=== PATIENT | male | born 1990 | race Caucasian/White ===

== ENCOUNTER 2019-02-20 13:51 | Inpatient (IN) | payer MEDICARE, MEDICAID, SELFPAY ==
[2019-02-20 14:30] VITALS: BP 122/76; PULSE 91; RESP 16; TEMP 36.7; BMI 22.4
--- NOTE | 2019-02-20 14:32 | HP.PCM_ITS ---
Problem List (1) Opiate withdrawal Status: Acute (2) Alcohol use disorder Status: Acute (3) Nicotine dependence Status: Acute Qualifiers: Nicotine product type: cigarettes Substance use status: unspecified nicotine-induced disorder Qualified Code(s): F17.219 - Nicotine dependence, cigarettes, with unspecified nicotine-induced disorders (4) Moderate benzodiazepine use disorder Status: Acute History of Present Illness Date of Admission: 02/20/19 Chief Complaint: Acute opiate withdrawal The patient is a 28 year old M with past medical history of bilateral kidney transplants, bladder surgeries, history of IV heroin use, alcohol, benzodiaze pine and nicotine use disorder, who comes in for medical stabilization under the [facility] program. Patient admits to use of the above polysubstances but feels that the IV heroin is his biggest problem. He takes the Xanax to sleep. He uses about 4mg a night. He also drinks about 2-3 beers every day, last drink was 2 days ago. He smokes marijuana. He typically uses 2-3 g of IV heroin, last use of heroin was 5 hours ago and also admits to use of methamphetamines every day. He smokes about 1 pack of cigarettes every day. His admitting CIWA score was 23, Cina score was 17. Vitals on exam show temperature of 90 8.1F, heart rate 91, blood pressure 120/76, respiratory rate was 16, oxygen saturation was 99% on room air. Past Medical History Allergies No Known Allergies Allergy (Verified 02/20/19 14:28) Home Medications: Ambulatory Orders Medication Instructions Recorded NK 02/20/19 Surgical History: - Psychiatric History: Anxiety - Status post bilateral kidney transplant, Depression Lives: With Family Smoking Status: Current some day smoker Tobacco Use: Cigarettes Alcohol: Heavy Drugs: Heroin, Marijuana, - - methamphetamines - *Family History Maternal History Items: Cancer - breast Paternal History Items: No pertinent history Review of Systems Constitutional: Reports: Malaise, Weakness, Fatigue. Denies: Anorexia, Chills, Fever, Weight Change Eyes: Denies: Blurred vision, Cataracts, Conjunctivae Inflammation, Pain, Redness, Vision Change HEENT: Reports: Nasal Congestion. Denies: Difficulty Hearing, Difficulty Swallowing, Head Aches, Hearing Changes, Sinus Congestion, Sinus Drainage, Sore Throat, Visual Changes Cardiovascular: Denies: Chest Pain, Claudication, Orthopnea, Palpitations, Paroxysmal Noc. Dyspnea, Syncope Respiratory: Denies: Cough, Hemoptysis, Shortness of Breath, Shortness of breath at rest, Shortness of breath upon exertion, Sputum production, Wheezing Gastrointestinal: Denies: Abdominal Pain, Constipation, Nausea, Vomiting Genitourinary: Denies: Dysuria Musculoskeletal: Reports: Muscle pain. Denies: Joint Pain, Joint stiffness, Joint swelling, Joint Tenderness Skin: Denies: Rash, Wounds Neurological: Denies: Blurred vision, Difficulty swallowing, Focal weakness, Numbness, Tingling Psychiatric: Denies: Anxiety, Depression, Homicidal Ideations, Suicidal Ideations Hematologic/ Lymphatic: Denies: Easy Bruising, Easy Bleeding VTE Information - Inpt Only VTE Present on Admission: No VTE Pharm Prophylaxis ordered?: Yes Patient Problems: Active and Suspected Problems Opiate withdrawal (Acute) Alcohol use disorder (Acute) Nicotine dependence (Acute) Moderate benzodiazepine use disorder (Acute) - Physical Exam General: Alert, Oriented x3, Cooperative, No apparent distress HEENT: Atraumatic, PERRLA, EOMI, Normocephalic Oral: Moist Mucosa Neck: Supple, No JVD, Negative Carotid Bruits Lungs: Clear to auscultation, Normal air movement Cardiovascular: Regular rate, Regular Rhythm, Normal S1, Normal S2, No murmurs Abdomen: Bowel Sounds Present, Soft, Non Tender, Non-Distended, No Hepato- splenomegaly Extremities: No edema Skin: - - Scattered erythematous maculopapular lesions secondary to skin picking Musculoskeletal: No Tenderness to Palpation of Joints or Extremities Lymphatic: No Cervical, Supraclavicular, or Inguinal Adenopathy Neurological: Cranial nerves II-XII grossly intact, Neuro grossly intact Psych/Mental Status: Normal Affect, Appropriate Assessment/Plan All Active Problems Opiate withdrawal (Acute) Alcohol use disorder (Acute) Nicotine dependence (Acute) Moderate benzodiazepine use disorder (Acute) 28 year old M with past medical history of bilateral kidney transplants, bladder surgeries, history of IV heroin use, alcohol, benzodiazepine and nicotine use disorder, who comes in for medical stabilization under the [facility] program. 1. Acute opiate withdrawal, admitting Cina score of 17, use of IV heroin Plan: Admit to the [facility] floor, continue a [facility] protocol, continue to monitor vitals 2. Acute alcohol withdrawal, will put on alcohol withdrawal protocol 3. Acute benzodiazepine withdrawal, CIWA score is 23, will be on Ativan taper for alcohol withdrawal 4. H/o bilateral kidney transplant, last nephrology visit was 6 months ago, creatinine was reportedly normal Will check admitting labs 5. Nicotine dependence, advised to quit, will put on nicotine patch and gum 6. Polysubstance use, advised to quit 7. DVT PPx- Early ambulation Code Visit Inpatient E&M: 94629 Init Hosp L3
[2019-02-20 14:33] VITALS: BP 122/76; PULSE 91; RESP 16; TEMP 36.7; O2SAT 99
[2019-02-20 14:54] LABS: Absolute Lymphocyte Count 1.52 X10^3/ul (0.83-4.51); Absolute Neutrophil Count 3.8 X10^3/uL (2.0-7.7); Basophil# 0.02 X10^3/uL; Basophil% 0.3 % (0-1); Eosinophil# 0.01 X10^3/uL; Eosinophils% 0.2 % (0-5); Hematocrit 39.6 % (40-54); Hemoglobin 13.2 g/dl (13.0-16.5); Lymphocyte # 1.52 X10^3/ul (4.0); Lymphocyte % 25.3 % (19-41); Mean Corp Hgb Conc 33.3 g/gl (32-36); Mean Corpuscular Hgb 30.1 pg (27.0-32.0); Mean Corpuscular Volume 90.4 fL (80-94); Mean Platelet Vol. 9.8 fl (6.2-12.0); Monocyte# 0.66 X10^3/uL; Neutrophil # 3.77 X10^3/uL (2.7-7.7); Neutrophil % 62.9 % (47-70); Platelet Count 233 K/mm3 (150-450); RBC Distribution Width CV 12.9 % (11.6-14.6); RBC Distribution Width SD 42.1 fl (35.1-43.9); Red Blood Count 4.38 M/mm3 (4.6-6.2)
--- NOTE | 2019-02-20 15:08 | NEWVISION ---
Addendum entered by Cony Dickson 02/20/19 16:06: Patient transportation to [employer] patient between 12-1pm. Original Note: Patient will attend inpatient treatment at [facility]. Facility to transport patient to rehab upon discharge.
[2019-02-20 15:22] LABS: AST(SGOT) 22 U/L (15-37); Alanine Aminotransfer ALT/SGPT 21 U/L (16-61); Albumin, Serum 3.5 g/dL (3.2-5.0); Alkaline Phosphatase 73 U/L (45-117); Anion Gap 4 (5-15); BUN 25 mg/dL (7-18); BUN/Creat Ratio 19.2 RATIO (10-20); Calcium,Total 8.5 mg/dL (8.5-10.1); Chloride 107 mmol/L (98-107); EST Glomerular Filtration Rate 69 mL/min (>60); Est Glom Filt Rate - Afr Amer 84 mL/min (>60); Estimated Creatinine Clearance 81.95 ml/min; Globulin 3.4 g/dL (2.2-4.2); Glucose 94 mg/dL (74-106); Protein, Total 6.9 g/dL (6.4-8.2); Sodium Level 139 mmol/L (136-145)
[2019-02-20] MEDS: Methocarbamol 750 MG Tablet PO (15:23)
[2019-02-20] MEDS: hydrOXYzine PAM 25 MG Capsule 50 MG PO (15:23)
[2019-02-20] MEDS: Buprenorphine HCl 2 MG TAB.SUBL SL ×2 (15:23→23:03)
[2019-02-20] MEDS: Dicyclomine 10 MG Capsule 20 MG PO (15:23)
[2019-02-20] MEDS: Pramipexole Di-HCl 0.25 MG Tablet PO (15:28)
[2019-02-20 15:51] LABS: POSITIVE COUNT NO; POSITIVE DIFFERENTIAL NO; POSITIVE MORPHOLOGY NO
[2019-02-20] MEDS: LORazepam 1 MG Tablet PO ×3 (16:07→23:03)
[2019-02-20] MEDS: Multivitamins,Therapeutic Tablet 1 TABLET PO (16:37)
[2019-02-20] MEDS: Thiamine Hydrochloride 100 MG Tablet PO (16:37)
[2019-02-20] MEDS: Folic Acid 1 MG Tablet PO (16:37)
[2019-02-20 16:39] VITALS: BP 125/77; PULSE 85; RESP 16; TEMP 36.6
[2019-02-20 20:23] VITALS: BP 120/78; PULSE 82; RESP 16; TEMP 36.6; O2SAT 99
[2019-02-20 21:13] LABS: Amphetamine Urine VISTA POSITIVE (<1000 ng/mL); Barbiturate Urine VISTA NEGATIVE (< 200 ng/mL); Benzodiazepine Urine VISTA NEGATIVE (< 200 ng/mL); Cocaine Urine VISTA NEGATIVE (< 300 ng/mL); Ecstacy Urine VISTA NEGATIVE (< 500 ng/mL); Methadone Urine VISTA NEGATIVE (< 300 ng/mL); PCP Urine VISTA NEGATIVE (< 25 ng/mL); THC Urine VISTA POSITIVE (< 50 ng/mL); Vista UDS pH Range 6
[2019-02-20] MEDS: traZODone 50 MG Tablet PO (23:03)
[2019-02-20 23:20] VITALS: BP 121/83; PULSE 77; RESP 16; TEMP 36.3; O2SAT 99
[2019-02-20 23:26] VITALS: BP 121/83; PULSE 77; RESP 16; TEMP 36.3
--- NOTE | 2019-02-20 23:31 | NURSING ---
Pt. refusing seizure pads at this time. Removed seizure pads from bed per pt. request.
[2019-02-21] VITALS (7 sets, daily range): BP systolic 121–136; BP diastolic 71–78; PULSE 73–92; RESP 16–18; TEMP 35.9–36.6; O2SAT 96–98
[2019-02-21] MEDS: LORazepam 1 MG Tablet PO ×5 (03:53→23:30)
[2019-02-21] MEDS: Buprenorphine HCl 2 MG TAB.SUBL SL ×3 (06:04→23:30)
[2019-02-21] MEDS: Dicyclomine 10 MG Capsule 20 MG PO ×2 (08:12→15:07)
[2019-02-21] MEDS: Methocarbamol 750 MG Tablet PO ×3 (08:12→23:30)
[2019-02-21] MEDS: Folic Acid 1 MG Tablet PO (08:12)
[2019-02-21] MEDS: Multivitamins,Therapeutic Tablet 1 TABLET PO (08:12)
[2019-02-21] MEDS: Thiamine Hydrochloride 100 MG Tablet PO (08:12)
[2019-02-21] MEDS: Ibuprofen 600 MG Tablet PO (08:12)
[2019-02-21] MEDS: hydrOXYzine PAM 25 MG Capsule 50 MG PO (11:14)
[2019-02-21] MEDS: Acetaminophen 500 MG Tablet PO (11:14)
[2019-02-21] MEDS: Pramipexole Di-HCl 0.25 MG Tablet PO ×2 (11:14→23:30)
--- NOTE | 2019-02-21 14:02 | PCM.PROGNOTE ---
Patient Problems: Active and Suspected Problems Opiate withdrawal (Acute) Alcohol use disorder (Acute) Nicotine dependence (Acute) Moderate benzodiazepine use disorder (Acute) Subjective: Pt has some ongoing runny nose, watery eyes, restless legs, muscle aches. No GI issues, states he gets very hungry during withdrawal. He is pleased with the current medication regimen stating that his symptoms are very tolerable currently and that he does not expect them to completely go away. - Physical Exam General: Alert, Oriented x3, Cooperative HEENT: Atraumatic, PERRLA, EOMI, Normocephalic Neck: Supple, No JVD, Negative Carotid Bruits Lungs: Clear to auscultation, Normal air movement Cardiovascular: Regular rate, No murmurs Abdomen: Bowel Sounds Present, Soft, Non Tender Extremities: No edema, Capillary Refill Less than 3 Seconds Skin: No rashes, No breakdown Musculoskeletal: No Tenderness to Palpation of Joints or Extremities Neurological: Cranial nerves II-XII grossly intact Psych/Mental Status: Normal Affect, Appropriate, Alert and oriented to time, place, person, mood and affect Vital Signs Temp Pulse Resp BP Pulse Ox 96.6 F L 92 18 123/74 H 98 02/21/19 11:08 02/21/19 11:08 02/21/19 11:08 02/21/19 11:08 02/21/19 06:24 Oxygen Delivery Method Room Air Weight: 152 lb 5.431 oz Body Mass Index (BMI) 22.4 Intake and Output for Last 24 Hours 02/19/19 02/20/19 02/21/19 23:59 23:59 23:59 Intake Total 360 / 360 900 / 900 Balance 360 / 360 900 / 900 Laboratory Tests Past 24 Hrs 02/20/19 02/20/19 02/20/19 14:45 14:45 20:22 WBC 6.0 RBC 4.38 L Hgb 13.2 Hct 39.6 L MCV 90.4 MCH 30.1 MCHC 33.3 RDW 12.9 RDW Differential 42.1 Plt Count 233 MPV 9.8 Immature Gran % (Auto) 0.300 Neut % (Auto) 62.9 Lymph % (Auto) 25.3 [place] % (Auto) 11.0 H Eos % (Auto) 0.2 Baso % (Auto) 0.3 Absolute Neuts (auto) 3.8 Absolute Lymphs (auto) 1.52 Total Counted Not Reportable Sodium 139 Potassium 4.0 Chloride 107 Carbon Dioxide 28.0 Anion Gap 4 L BUN 25 H Creatinine 1.30 Estim Creat Clear Calc 81.95 Est GFR (MDRD) Af Amer 84 Est GFR (MDRD) Non-Af 69 BUN/Creatinine Ratio 19.2 Glucose 94 Calcium 8.5 Total Bilirubin 0.20 AST 22 ALT 21 Alkaline Phosphatase 73 Total Protein 6.9 Albumin 3.5 Globulin 3.4 Albumin/Globulin Ratio 1.0 Urine Opiates Screen POSITIVE H Urine Methadone Screen NEGATIVE Ur Barbiturates Screen NEGATIVE Ur Phencyclidine Scrn NEGATIVE Ur Amphetamines Screen POSITIVE H U Methamphetamin-MDMA NEGATIVE U Benzodiazepines Scrn NEGATIVE Urine Cocaine Screen NEGATIVE U Cannabinoids Screen POSITIVE H Ur Drug Screen Comment Medical Necessity - Tobacco Use Smoking Status: Current some day smoker Tobacco Use: Cigarettes Assessment/Plan All Active Problems Opiate withdrawal (Acute) Alcohol use disorder (Acute) Nicotine dependence (Acute) Moderate benzodiazepine use disorder (Acute) 1. Acute opiate withdrawal - continue suboxone taper and prn regimen. 2. Polysubstance abuse - nicotine, marijuana, benzos, meth - also ativan taper for benzos. Patch. 3. Hx BL kidney transplant - BUN mildly high, Cr ok. DVT ppx: early ambulation Medical stabilization day 2 of 4 This patient was seen by Erasmo Villaseñor PA-C under the supervision of Dr. Kim.
[2019-02-21] MEDS: traZODone 50 MG Tablet PO (23:30)
[2019-02-22 06:38] VITALS: BP 126/67; PULSE 81; RESP 16; TEMP 36.4
[2019-02-22] MEDS: Buprenorphine HCl 2 MG TAB.SUBL SL ×2 (06:44→18:36)
[2019-02-22] MEDS: Methocarbamol 750 MG Tablet PO ×3 (06:44→18:35)
[2019-02-22] MEDS: LORazepam 1 MG Tablet PO ×3 (06:44→20:18)
[2019-02-22] MEDS: Pramipexole Di-HCl 0.25 MG Tablet PO (12:02)
[2019-02-22] MEDS: Dicyclomine 10 MG Capsule 20 MG PO ×2 (12:02→18:35)
[2019-02-22] MEDS: Multivitamins,Therapeutic Tablet 1 TABLET PO (12:09)
--- NOTE | 2019-02-22 12:12 | PCM.PROGNOTE ---
Patient Problems: Active and Suspected Problems Opiate withdrawal (Acute) Alcohol use disorder (Acute) Nicotine dependence (Acute) Moderate benzodiazepine use disorder (Acute) Subjective: Pt complains of headache behind the eyes, increased restlessness, and hot and cold sweats. - Physical Exam General: Alert, Oriented x3, Cooperative HEENT: Atraumatic, PERRLA, EOMI, Normocephalic Neck: Supple, No JVD, Negative Carotid Bruits Lungs: Clear to auscultation, Normal air movement Cardiovascular: Regular rate, No murmurs Abdomen: Bowel Sounds Present, Soft, Non Tender Extremities: No edema, Capillary Refill Less than 3 Seconds Skin: No rashes, No breakdown Musculoskeletal: No Tenderness to Palpation of Joints or Extremities Neurological: Cranial nerves II-XII grossly intact Psych/Mental Status: Appropriate, Anxious, Alert and oriented to time, place, person, mood and affect Vital Signs Temp Pulse Resp BP Pulse Ox 97.6 F L 81 16 126/67 H 98 02/22/19 06:38 02/22/19 06:38 02/22/19 06:38 02/22/19 06:38 02/21/19 15:08 Oxygen Delivery Method Room Air Weight: 152 lb 5.431 oz Body Mass Index (BMI) 22.4 Intake and Output for Last 24 Hours 02/20/19 02/21/19 02/22/19 23:59 23:59 23:59 Intake Total 360 / 360 1440 / 1440 50 / 50 Balance 360 / 360 1440 / 1440 50 / 50 Medical Necessity - Tobacco Use Smoking Status: Current some day smoker Tobacco Use: Cigarettes Assessment/Plan All Active Problems Opiate withdrawal (Acute) Alcohol use disorder (Acute) Nicotine dependence (Acute) Moderate benzodiazepine use disorder (Acute) 1. Acute opiate withdrawal - continue suboxone taper and prn regimen. add prn clonidine for hot/cold sweats 2. Polysubstance abuse - nicotine, marijuana, benzos, meth - also ativan taper for benzos. Patch for nicotine w/d. 3. Hx BL kidney transplant - BUN mildly high, Cr ok. DVT ppx: early ambulation Medical stabilization day 3 of 4 DC planning : to inpatient rehab in [place] tomorrow. This patient was seen by Erasmo Villaseñor PA-C under the supervision of Dr. Kim.
[2019-02-22 12:14] VITALS: BP 134/92; PULSE 94; RESP 20; TEMP 36.8
[2019-02-22] MEDS: Folic Acid 1 MG Tablet PO (12:43)
[2019-02-22] MEDS: Thiamine Hydrochloride 100 MG Tablet PO (12:43)
[2019-02-22] MEDS: cloNIDine HCl 0.1 MG Tablet PO ×3 (13:07→20:21)
[2019-02-22] MEDS: hydrOXYzine PAM 25 MG Capsule 50 MG PO (16:56)
[2019-02-22 16:58] VITALS: BP 142/87; PULSE 92; RESP 18; TEMP 36.7
[2019-02-22 17:00] VITALS: BP 142/87; PULSE 94; RESP 20; TEMP 36.8; O2SAT 96
[2019-02-22 20:00] VITALS: BP 122/76; PULSE 77; RESP 14; TEMP 36.5
[2019-02-22 20:11] VITALS: O2SAT 98
[2019-02-22] MEDS: traZODone 50 MG Tablet PO (20:40)
[2019-02-23 04:00] VITALS: BP 101/63; PULSE 79; RESP 12; TEMP 37.5
[2019-02-23] MEDS: LORazepam 1 MG Tablet PO ×2 (04:16→11:51)
[2019-02-23] MEDS: Buprenorphine HCl 2 MG TAB.SUBL SL (06:47)
[2019-02-23] MEDS: Multivitamins,Therapeutic Tablet 1 TABLET PO (08:30)
[2019-02-23] MEDS: Methocarbamol 750 MG Tablet PO (08:41)
[2019-02-23] MEDS: hydrOXYzine PAM 25 MG Capsule 50 MG PO (08:41)
[2019-02-23] MEDS: cloNIDine HCl 0.1 MG Tablet PO (08:41)
[2019-02-23 09:00] VITALS: BP 127/73; PULSE 81; RESP 16; TEMP 37.2; O2SAT 98
--- NOTE | 2019-02-23 09:01 | DCINST_ITS ---
- Discharge Diagnoses Current Active Problems: Current Active and Chronic Problems Opiate withdrawal (Acute) Alcohol use disorder (Acute) Nicotine dependence (Acute) Moderate benzodiazepine use disorder (Acute) You will use the following diet at home:: No restrictions Allergies/Adverse Reactions: Allergies No Known Allergies Allergy (Verified 02/20/19 14:28) Medications to take at Discharge NK 02/20/19 Primary Care Physician: Care Physician,No Primary [Primary Care Provider] - Test Results: Test results from this visit will be discussed in further detail at your follow- up appointment, if applicable. Proposed Discharge Date: 02/23/19
--- NOTE | 2019-02-23 09:01 | PCM.DC.SUM ---
Discharge Date and Diagnosis - Problem List Patient Problems: Active and Suspected Problems Opiate withdrawal (Acute) Alcohol use disorder (Acute) Nicotine dependence (Acute) Moderate benzodiazepine use disorder (Acute) Date of Admission: 02/20/19 Date of Discharge: 02/23/19 - Primary Discharge Diagnosis Active and Suspected Problems Opiate withdrawal (Acute) Alcohol use disorder (Acute) Nicotine dependence (Acute) Moderate benzodiazepine use disorder (Acute) Hospital Course and Treatment Summary of Care Provided: The patient is a 28 year old M medical history sent in for opioid use who presented with acute opiate withdrawal. Patient was admitted to regular nursing floor for medical stabilization using Subutex. Patient condition did improve after 3 days of hospitalization. Patient also has use of tobacco was counseled on cessation Patient Problems: Active and Suspected Problems Opiate withdrawal (Acute) Alcohol use disorder (Acute) Nicotine dependence (Acute) Moderate benzodiazepine use disorder (Acute) - Physical Exam General: Alert HEENT: Atraumatic Oral: Moist Mucosa Neck: No JVD Lungs: Clear to auscultation Abdomen: Non Tender Neurological: Neuro grossly intact Psych/Mental Status: Normal Affect Vital Signs Temp Pulse Resp BP Pulse Ox 99.5 F H 79 12 101/63 98 02/23/19 04:00 02/23/19 04:00 02/23/19 04:00 02/23/19 04:00 02/22/19 20:11 Oxygen Delivery Method Room Air Weight: 69.1 kg Body Mass Index (BMI) 22.4 Intake and Output for Last 24 Hours 02/21/19 02/22/19 02/23/19 23:59 23:59 23:59 Intake Total 1440 / 1440 550 / 550 120 / 120 Output Total 0 / 0 Balance 1440 / 1440 550 / 550 120 / 120 Discharge Diet: No Restrictions Discharge Activity: Return to Normal Activity, May not drive while taking narcotic pain medications. Home Medications: Medications to take at Discharge NK 02/20/19 Primary Care Physician: Care Physician,No Primary [Primary Care Provider] - Disposition: Home Minutes spent on discharge:: 31 Patient Condition:: Stable Medical Necessity - Tobacco Use Smoking Status: Current some day smoker Tobacco Use: Cigarettes Meaningful Use Info Meaningful Use Diagnoses (Choose all that apply): None applicable Code Visit Inpatient E&M: 80324 Disch Hosp
[2019-02-23 12:03] VITALS: BP 127/73; PULSE 81; RESP 16; TEMP 37.2; O2SAT 98
== END 2019-02-23 12:16 | disposition home or self-care (01) | DRG 897 ==
LOC: MS2 02-21 13:27 → MS3 02-21 17:00
PROVIDERS: Admitting Provider Internal Medicine; Referring Provider Internal Medicine; Visit Provider Internal Medicine
DX: F11.23 Opioid dependence with withdrawal (principal); Z94.0 Kidney transplant status; F17.210 Nicotine dependence, cigarettes, uncomplicated; F10.20 Alcohol dependence, uncomplicated; F13.90 Sedative, hypnotic, or anxiolytic use, unspecified, uncomplicated
CPT/HCPCS: 36415; 80053; 80307; 85025; 99406